=== PATIENT | male | born 2000 | race Two or more races ===

== ENCOUNTER 2019-05-04 04:41 | Emergency (ER) | payer MEDICAID ==
[~2019-05-04] VITALS: Ht 172.7 cm; Wt 59.9 kg
[2019-05-04 04:44] VITALS: BP 125/88
--- NOTE | 2019-05-04 05:20 | NUR ---
ABRASSION NOTED ON L KNEE R UPPER INNER THIGH AND L WRIST. CLEANSE WITH NS. PAT DRY. BACITRACIN OINMENT APPLIED. NON ADHESIVE DRESSING AND COVERED WITH 4X4.
== END 2019-05-04 05:22 | disposition home or self-care (01) ==
LOC: ER 04:45
DX: S81.012A Laceration without foreign body, left knee, initial encounter (principal); S70.311A Abrasion, right thigh, initial encounter; R56.9 Unspecified convulsions; W18.39XA Other fall on same level, initial encounter; W10.9XXA Fall (on) (from) unspecified stairs and steps, initial encounter; Y93.89 Activity, other specified; Y92.89 Other specified places as the place of occurrence of the external cause; Y99.8 Other external cause status

== ENCOUNTER 2020-01-06 17:08 | Emergency (ER) | payer MEDICAID ==
[~2020-01-06] VITALS: Ht 172.7 cm; Wt 63.5 kg
[2020-01-06 17:26] VITALS: BP 109/62
[2020-01-06] MEDS ORDERED: IBUPROFEN 600 MG TABLET PO ONE ×2 (18:16→18:30)
--- NOTE | 2020-01-06 18:19 | NUR ---
Patient discharged to home in stable condition. Written and verbal after care instructions given. Patient verbalizes understanding of instruction.
== END 2020-01-06 18:20 | disposition home or self-care (01) ==
LOC: ER 17:08
DX: S60.222A Contusion of left hand, initial encounter (principal); J45.909 Unspecified asthma, uncomplicated; V00.131A Fall from skateboard, initial encounter; Y93.51 Activity, roller skating (inline) and skateboarding; Y92.331 Roller skating rink as the place of occurrence of the external cause; Y99.8 Other external cause status
CPT/HCPCS: 73130-TC

== ENCOUNTER 2020-05-12 15:55 | Emergency (ER) | payer MEDICAID ==
[~2020-05-12] VITALS: Ht 172.7 cm; Wt 61.2 kg
--- NOTE | 2020-05-12 16:12 | NUR ---
CAME IN FOR L ANKLE PAIN/SWELLING S/P "ROLLING IT" WHILE SKATEBOARDING YESTERDAY. TO ER BED 10, HOOKED TO MONITOR, CHANGED TO HOSP GOWN, WARM BLANKET PROVIDED, AWAITING MD BURROUGHS
--- NOTE | 2020-05-12 16:18 | NUR ---
DR HALLMAN AT BEDSIDE
--- NOTE | 2020-05-12 17:26 | NUR ---
Patient discharged to home in stable condition. Written and verbal after care instructions given. Patient verbalizes understanding of instruction.
[2020-05-12 17:51] VITALS: BP 118/70
== END 2020-05-12 17:26 | disposition home or self-care (01) ==
LOC: ER 16:03
DX: S93.492A Sprain of other ligament of left ankle, initial encounter (principal); M25.531 Pain in right wrist; J45.909 Unspecified asthma, uncomplicated; X50.1XXA Overexertion from prolonged static or awkward postures, initial encounter; Y93.51 Activity, roller skating (inline) and skateboarding; Y92.89 Other specified places as the place of occurrence of the external cause; Y99.8 Other external cause status
CPT/HCPCS: 73110; 73610-TC